=== PATIENT | male | born 1950 | race Caucasian/White ===

== ENCOUNTER 2017-05-06 11:12 | Observation (INO) ==
[2017-05-06 15:01] LABS: Basophils % 0.7 % (0.0-0.8); Eosinophils # 0.1 10*3/uL (0.0-0.87); Hematocrit 45.5 VOL% (42.0-52.0); Hemoglobin 14.9 GM/DL (14.0-18.0); Immature Granulocytes % 0.3 %; Immature Granulocytes Absolute 0.02 #; Lymphocytes # 1.6 10*3/uL (1.4-4.0); Lymphocytes % 27.6 % (21.2-54.2); Mean Corpuscular HGB Conc 32.7 GM/DL (32-36); Mean Corpuscular Hemoglobin 32 PG (27-34); Mean Corpuscular Volume 96.8 FL (87-102); Mean Platelet Volume 9.7 FL (9.6-12.0); Monocytes # 0.4 10*3/uL (0.11-0.8); Monocytes % 7.4 % (1.7-12.7); Neutrophils # 3.7 10*3/uL (1.4-7.4); Platelet Count 209 T/CUMM (130-400); Red Cell Distribution Width 12.2 % (9.3-17.3); White Blood Count 5.8 T/CUMM (4-12)
[2017-05-06 15:08] LABS: INR 1.1; PT Patient Result 11.5 SECS
[2017-05-06 15:48] LABS: Alanine Aminotransferase 36 U/L (16-61); Albumin 4.7 G/DL (3.4-5.0); Alkaline Phosphatase 59 U/L (45-117); Aspartate Amino Transferase 25 U/L (0-37); Blood Urea Nitrogen 11 MG/DL (7-18); Calcium 9.7 MG/DL (8.5-10.1); Glucose 129 MG/DL (74-106); Magnesium 2.3 MG/DL (1.8-2.4); Osmolality,Calculated 277.5 MOS/KG (273-304); Potassium 4.7 MMOL/L (3.5-5.1); Sodium 139 MMOL/L (136-145); Total Protein 7.8 G/DL (6.4-8.3); Troponin I Only < 0.015 NG/ML (0.00-0.045)
[2017-05-06] MEDS: ENOXAPARIN 100 MG/ML SYRINGE SUBCUT SCH (17:10)
[2017-05-06] MEDS: ASPIRIN 325 MG TABLET PO SCH (17:10)
[2017-05-06] MEDS ORDERED: ASPIRIN 325 MG TABLET ONE (17:12)
[2017-05-06] MEDS ORDERED: ENOXAPARIN 100 MG/ML SYRINGE SUBCUT ONE (17:12)
[2017-05-06] MEDS ORDERED: NITROGLYCERIN 2% OINT 1 INCH/GM PACK TOP ONE (17:12)
[2017-05-06] MEDS ORDERED: MAGNESIUM SULF RIDER 2 GM in PREMIX 1 EACH IV PRN (18:22)
[2017-05-06] MEDS ORDERED: ONDANSETRON 4 MG/2 ML VIAL IV PRN (18:22)
[2017-05-06] MEDS ORDERED: MAGNESIUM SULF RIDER 4 GM in PREMIX 1 EACH IV PRN (18:22)
[2017-05-06] MEDS ORDERED: NITROGLYCERIN 2% OINT 1 INCH/GM PACK TOP STA (18:22)
[2017-05-07 04:55] LABS: Basophils # 0.1 10*3/uL (0.0-0.2); Basophils % 0.9 % (0.0-0.8); Eosinophils # 0.1 10*3/uL (0.0-0.87); Eosinophils % 1.6 % (0.00-10.9); Hematocrit 40.1 VOL% (42.0-52.0); Hemoglobin 13.4 GM/DL (14.0-18.0); Immature Granulocytes % 0.5 %; Immature Granulocytes Absolute 0.03 #; Lymphocytes # 2.1 10*3/uL (1.4-4.0); Lymphocytes % 36.7 % (21.2-54.2); Mean Corpuscular HGB Conc 33.4 GM/DL (32-36); Mean Corpuscular Hemoglobin 32 PG (27-34); Mean Corpuscular Volume 95.5 FL (87-102); Mean Platelet Volume 10.3 FL (9.6-12.0); Monocytes # 0.6 10*3/uL (0.11-0.8); Monocytes % 9.8 % (1.7-12.7); Neutrophils # 2.8 10*3/uL (1.4-7.4); Neutrophils % 50.5 % (38.7-73.9); Platelet Count 201 T/CUMM (130-400); Red Cell Distribution Width 12.2 % (9.3-17.3); White Blood Count 5.6 T/CUMM (4-12)
[2017-05-07 05:08] LABS: PT Patient Result 10.7 SECS
[2017-05-07 05:25] LABS: Calcium 8.5 MG/DL (8.5-10.1); Osmolality,Calculated 281.4 MOS/KG (273-304); Potassium 4.4 MMOL/L (3.5-5.1)
[2017-05-07] MEDS ORDERED: POTASSIUM CHLORIDE RIDER 10 MEQ in PREMIX 1 EACH IV PRN (06:30)
[2017-05-07] MEDS ORDERED: diphenhydrAMINE CAP 25 MG CAPSULE PO ONE (06:30)
[2017-05-07] MEDS ORDERED: MAGNESIUM SULF RIDER 2 GM in PREMIX 1 EACH IV PRN (06:30)
[2017-05-07] MEDS: ASPIRIN 325 MG TABLET PO SCH ×2 (07:33→10:35)
[2017-05-07] MEDS: ENOXAPARIN 100 MG/ML SYRINGE SUBCUT SCH (07:34)
[2017-05-07] MEDS ORDERED: LIDOCAINE 1% 20 ML VIAL ONE (08:03)
[2017-05-07] MEDS ORDERED: VERAPAMIL 5 MG/2 ML VIAL ONE (08:06)
[2017-05-07] MEDS ORDERED: NITROGLYCERIN DRIP 50 MG/250 ML BOTTLE IV ONE (08:06)
[2017-05-07] MEDS ORDERED: POTASSIUM GLUCONATE 500 MG TABLET PO SCH (09:00)
[2017-05-07] MEDS ORDERED: MULTIVITAMIN (CENTRUM) TABLET PO SCH (09:00)
[2017-05-07] MEDS ORDERED: amLODIPine 10 MG TABLET PO SCH (09:00)
[2017-05-07] MEDS ORDERED: SERTRALINE 25 MG TABLET PO SCH (09:00)
[2017-05-07] MEDS ORDERED: PSYLLIUM POWDER 3.7 GM/PACK PO SCH (09:00)
[2017-05-07] MEDS ORDERED: CARVEDILOL 12.5 MG TABLET PO SCH (09:00)
[2017-05-07] MEDS ORDERED: PANTOPRAZOLE 40 MG TABLET PO SCH (09:00)
[2017-05-07] MEDS ORDERED: LACTOBACILLUS RHAMNOSUS GG CAPSULE PO SCH (09:00)
[2017-05-07] MEDS ORDERED: ISOSORBIDE MONONITRATE 30 MG TABLET PO SCH (09:00)
[2017-05-07] MEDS ORDERED: hydroCHLOROthiazide 12.5 MG CAPSULE PO SCH (09:00)
[2017-05-07] MEDS ORDERED: guaiFENesin/DM ER 600-30 MG TABLET PO PRN (11:34)
[2017-05-07] MEDS ORDERED: ACETAMINOPHEN 325 MG TABLET PO PRN (11:34)
[2017-05-07] MEDS ORDERED: ZALEPLON 5 MG CAPSULE PO PRN (11:34)
[2017-05-07 15:04] VITALS: BP 124/68
[2017-05-07] MEDS ORDERED: CLOPIDOGREL 75 MG TABLET PO SCH (21:00)
[2017-05-07] MEDS ORDERED: OMEGA 3 ACID ETHYL ESTERS 1 GM CAPSULE PO SCH (21:00)
[2017-05-08] MEDS ORDERED: ASPIRIN EC 81 MG TABLET PO SCH (09:00)
== END 2017-05-07 15:02 | disposition home or self-care (01) ==
LOC: N.ED 11:12 → N.EDINP 11:12 → N.TELES 19:01
PROVIDERS: ADMIT Internal Medicine Cardiovascular Disease; ATTEND Internal Medicine Cardiovascular Disease
PROC: CLCCHCL (ICD-10-PCS; 2017-05-07 09:15)

== ENCOUNTER 2020-02-11 01:10 | Observation (INO) ==
[2020-02-11] MEDS ORDERED: NITROGLYCERIN 2% OINT 1 INCH/GM PACK TOP STA (01:48)
[2020-02-11] MEDS ORDERED: ALUM/MAG/SIMETH/LIDO VISC 1:1 30 ML BOTTLE PO STA (01:48)
[2020-02-11] MEDS ORDERED: HYDROmorphone 2 MG/1 ML VIAL IV STA (01:48)
[2020-02-11] MEDS ORDERED: ONDANSETRON 4 MG/2 ML VIAL IV STA (01:48)
[2020-02-11] MEDS ORDERED: ASPIRIN 325 MG TABLET PO STA (01:48)
[2020-02-11 02:00] LABS: Basophils % 0.6 % (0.0-0.8); Eosinophils # 0.1 10*3/uL (0.0-0.87); Eosinophils % 1.4 % (0.00-10.9); Hematocrit 40.9 VOL% (42.0-52.0); Hemoglobin 14.3 GM/DL (14.0-18.0); Immature Granulocytes % 0.2 %; Immature Granulocytes Absolute 0.01 #; Lymphocytes # 1.9 10*3/uL (1.4-4.0); Lymphocytes % 36.4 % (21.2-54.2); Mean Corpuscular Volume 93.2 FL (87-102); Mean Platelet Volume 9.6 FL (9.6-12.0); Monocytes % 10.3 % (1.7-12.7); Neutrophils % 51.1 % (38.7-73.9); Platelet Count 160 T/CUMM (130-400); Red Blood Count 4.39 MC/CUMM (3.8-5.5); White Blood Count 5.1 T/CUMM (4-12)
[2020-02-11 02:07] LABS: PT Patient Result 10.7 SECS (9.8-11.9)
[2020-02-11 02:14] LABS: Albumin 3.8 G/DL (3.4-5.0); Bilirubin,Total 0.4 MG/DL (0.2-1.0); Calcium 8.5 MG/DL (8.5-10.1); Osmolality,Calculated 285.1 MOS/KG (273-304); Total Protein 6.9 G/DL (6.4-8.3)
[2020-02-11] MEDS ORDERED: ENOXAPARIN 100 MG/ML SYRINGE SUBCUT STA (03:24)
[2020-02-11] MEDS ORDERED: ENOXAPARIN 120 MG/0.8 ML SYRINGE SUBCUT ONE (04:05)
[2020-02-11] MEDS ORDERED: ONDANSETRON 4 MG/2 ML VIAL IV PRN (05:41)
[2020-02-11] MEDS ORDERED: DEXTROSE 50% 25 GM/50 ML VIAL IV PRN (05:41)
[2020-02-11] MEDS ORDERED: GLUCAGON 1 MG VIAL IM PRN (05:41)
[2020-02-11] MEDS ORDERED: carvediloL 12.5 MG TABLET PO SCH (08:00)
[2020-02-11] MEDS ORDERED: HYDROmorphone 2 MG/1 ML VIAL IV PRN (08:28)
[2020-02-11] MEDS ORDERED: SODIUM CHLORIDE 0.9% 1,000 ML IV SCH (08:30)
[2020-02-11 08:46] LABS: Risk Ratio 3.74; VLDL CHOLESTEROL 21.8 MG/DL
[2020-02-11] MEDS ORDERED: ATORVASTATIN 40 MG TABLET PO SCH (09:00)
[2020-02-11] MEDS ORDERED: POTASSIUM GLUCONATE 500 MG TABLET PO SCH (09:00)
[2020-02-11] MEDS ORDERED: LORATADINE 10 MG TABLET PO SCH (09:00)
[2020-02-11] MEDS ORDERED: ISOSORBIDE MONONITRATE 30 MG TABLET PO SCH (09:00)
[2020-02-11] MEDS ORDERED: MULTIVITAMIN (CENTRUM) TABLET PO SCH (09:00)
[2020-02-11] MEDS ORDERED: ASPIRIN EC 81 MG TABLET PO SCH (09:00)
[2020-02-11] MEDS ORDERED: LOSARTAN 50 MG TABLET PO SCH ×2 (09:00)
[2020-02-11] MEDS ORDERED: GABAPENTIN 100 MG CAPSULE PO SCH (15:37)
[2020-02-11] MEDS ORDERED: IBUPROFEN 600 MG TABLET PO ONE (15:38)
[2020-02-11] MEDS ORDERED: IBUPROFEN 600 MG TABLET PO PRN (15:38)
[2020-02-11 18:17] VITALS: BP 132/76
[2020-02-11] MEDS ORDERED: OMEGA 3 ACID ETHYL ESTERS 1 GM CAPSULE PO SCH (21:00)
[2020-02-11] MEDS ORDERED: CLOPIDOGREL 75 MG TABLET PO SCH (21:00)
[2020-02-12] MEDS ORDERED: glyBURIDE 2.5 MG TABLET PO SCH (09:00)
[2020-02-12] MEDS ORDERED: ATORVASTATIN 80 MG TABLET PO SCH (09:00)
== END 2020-02-11 18:08 | disposition home health service (06) ==
LOC: N.EDINP 01:10 → N.ED 01:10 → N.TELEN 06:09
PROVIDERS: ADMIT Internal Medicine; ATTEND Internal Medicine

== ENCOUNTER 2021-09-07 06:01 | Inpatient (IN) ==
[~2021-09-07 06:01] MED LIST: ASPIRIN 325 MG TABLET PO ONE; DIAZEPAM 5 MG TABLET PO ONE; MAGNESIUM SULF RIDER 2 GM/50 ML PREMIX IV PRN; POTASSIUM CHLORIDE RIDER 10 MEQ/100 ML PREMIX IV PRN; diphenhydrAMINE CAP 50 MG CAPSULE PO ONE
[2021-09-07] MEDS ORDERED: HEPARIN/NACL 0.9% 2 UNITS/ML 2,000 UNIT/1,000 ML BAG IV ONE (06:49)
[2021-09-07] MEDS ORDERED: DIAZEPAM 5 MG TABLET ONE (06:54)
[2021-09-07] MEDS ORDERED: ASPIRIN 325 MG TABLET ONE (06:54)
[2021-09-07] MEDS ORDERED: diphenhydrAMINE CAP 50 MG CAPSULE ONE (06:54)
[2021-09-07] MEDS: SODIUM CHLORIDE 0.9% 1,000 ML IV SCH ×2 (07:14→17:22)
[2021-09-07] MEDS ORDERED: HYDROmorphone 1 MG/1 ML SYRINGE ONE (07:19)
[2021-09-07] MEDS ORDERED: MIDAZOLAM 2 MG/2 ML VIAL ONE (07:19)
[2021-09-07] MEDS ORDERED: diphenhydrAMINE 50 MG/1 ML VIAL ONE (07:29)
[2021-09-07] MEDS ORDERED: NITROGLYCERIN SL 0.4 MG TABLET SL PRN (08:00)
[2021-09-07] MEDS ORDERED: ONDANSETRON 4 MG/2 ML VIAL IV PRN (08:00)
[2021-09-07] MEDS ORDERED: GLUCAGON 1 MG VIAL IM PRN (08:54)
[2021-09-07] MEDS ORDERED: DEXTROSE 10% 250 ML BAG IV PRN (08:54)
[2021-09-07] MEDS: LOSARTAN 50 MG TABLET PO SCH ×2 (10:44→21:31)
[2021-09-07] MEDS: DOXAZOSIN 1 MG TABLET PO SCH ×2 (10:44→21:31)
[2021-09-07] MEDS: ZINC GLUCONATE 50 MG TABLET PO SCH (10:44)
[2021-09-07] MEDS: carvediloL 25 MG TABLET PO SCH ×2 (10:44→21:31)
[2021-09-07] MEDS: glyBURIDE 5 MG TABLET PO SCH (10:44)
[2021-09-07] MEDS: ATORVASTATIN 40 MG TABLET PO SCH (10:45)
[2021-09-07] MEDS: LORATADINE 10 MG TABLET PO SCH (10:45)
[2021-09-07] MEDS: ASPIRIN EC 81 MG TABLET PO SCH (10:45)
[2021-09-07] MEDS: HEPARIN DRIP 25,000 UNITS/500 ML PREMIX IV SCH (10:46)
[2021-09-07] MEDS: INSULIN REGULAR 100 UNIT/ML SUBCUT SCH ×3 (13:17→20:46)
[2021-09-07] MEDS ORDERED: BIOTIN 10000 MCG PO SCH (21:00)
[2021-09-07] MEDS ORDERED: [UNRECOGNIZED DRUG - REMARK] PO SCH (21:00)
[2021-09-07] MEDS ORDERED: GINKGO BILOBA LEAF EXTRACT 120 MG PO SCH (21:00)
[2021-09-08] MEDS: SODIUM CHLORIDE 0.9% 1,000 ML IV SCH ×4 (02:53→23:14)
[2021-09-08 04:41] LABS: Arterial Base Excess iSTAT 0 MMOL/L (-2.5-2.5); Arterial Bicarbonate iSTAT 24.2 MMOL/L (20-26); Arterial O2 Saturation iSTAT 99 % (95-100); Arterial PCO2 iSTAT 38 MM HG (35-48); Arterial PO2 iSTAT 122 MM HG (80-95); Arterial Total CO2 iSTAT 25 MMO/L (23-27); Arterial pH iSTAT 7.412 (7.35-7.45)
[2021-09-08 05:14] LABS: Basophils % 0.4 % (0.0-0.8); Eosinophils # 0.1 10*3/uL (0.0-0.87); Eosinophils % 1.1 % (0.00-10.9); Hematocrit 38.5 VOL% (42.0-52.0); Hemoglobin 12.8 GM/DL (14.0-18.0); Immature Granulocytes % 0.4 %; Immature Granulocytes Absolute 0.02 #; Lymphocytes # 1.7 10*3/uL (1.4-4.0); Lymphocytes % 36.4 % (21.2-54.2); Mean Corpuscular HGB Conc 33.2 GM/DL (32-36); Mean Corpuscular Volume 96.5 FL (87-102); Mean Platelet Volume 10.1 FL (9.6-12.0); Monocytes # 0.4 10*3/uL (0.11-0.8); Monocytes % 8.3 % (1.7-12.7); Neutrophils % 53.4 % (38.7-73.9); Platelet Count 150 T/CUMM (130-400); Red Blood Count 3.99 MC/CUMM (3.8-5.5); Red Cell Distribution Width 12.5 % (9.3-17.3); White Blood Count 4.6 T/CUMM (4-12)
[2021-09-08 05:34] LABS: Albumin 3.2 G/DL (3.4-5.0); Bilirubin,Direct 0.11 MG/DL (0.0-0.20); Bilirubin,Indirect 0.4 MG/DL (0.0-1.0); Bilirubin,Total 0.5 MG/DL (0.20-1.00); Osmolality,Calculated 282.3 MOS/KG (273-304); Potassium 3.9 MMOL/L (3.5-5.1); Total Protein 5.7 G/DL (6.4-8.2)
[2021-09-08] MEDS: HEPARIN DRIP 25,000 UNITS/500 ML PREMIX IV SCH ×2 (05:34→10:02)
[2021-09-08 05:38] LABS: Albumin 3.3 G/DL (3.4-5.0); Bilirubin,Total 0.5 MG/DL (0.20-1.00); Calcium 8.1 MG/DL (8.5-10.1); Osmolality,Calculated 284.1 MOS/KG (273-304); Potassium 3.9 MMOL/L (3.5-5.1); Total Protein 5.9 G/DL (6.4-8.2)
[2021-09-08] MEDS: INSULIN REGULAR 100 UNIT/ML SUBCUT SCH ×4 (07:45→22:07)
[2021-09-08] MEDS: LORATADINE 10 MG TABLET PO SCH (09:29)
[2021-09-08] MEDS: DOXAZOSIN 1 MG TABLET PO SCH ×2 (09:29→20:44)
[2021-09-08] MEDS: ASPIRIN EC 81 MG TABLET PO SCH (09:29)
[2021-09-08] MEDS: carvediloL 25 MG TABLET PO SCH ×2 (09:29→20:44)
[2021-09-08] MEDS: ZINC GLUCONATE 50 MG TABLET PO SCH (09:29)
[2021-09-08] MEDS: glyBURIDE 5 MG TABLET PO SCH (09:29)
[2021-09-08] MEDS: CHLORHEXIDINE 0.12% ORAL RINSE 60 ML BOTTLE SWISH/SPIT SCH ×2 (09:29→20:43)
[2021-09-08] MEDS ORDERED: LACTATED RINGERS 1,000 ML IV SCH (09:30)
[2021-09-08] MEDS: ATORVASTATIN 40 MG TABLET PO SCH (09:30)
[2021-09-08] MEDS: LOSARTAN 50 MG TABLET PO SCH ×2 (09:30→20:44)
[2021-09-09 05:18] LABS: Basophils % 0.2 % (0.0-0.8); Eosinophils % 0.7 % (0.00-10.9); Hematocrit 36.3 VOL% (42.0-52.0); Hemoglobin 12.2 GM/DL (14.0-18.0); Immature Granulocytes % 0.5 %; Immature Granulocytes Absolute 0.02 #; Lymphocytes # 1.5 10*3/uL (1.4-4.0); Lymphocytes % 34.5 % (21.2-54.2); Mean Corpuscular HGB Conc 33.6 GM/DL (32-36); Mean Corpuscular Volume 96.5 FL (87-102); Mean Platelet Volume 10.1 FL (9.6-12.0); Monocytes # 0.5 10*3/uL (0.11-0.8); Monocytes % 11.6 % (1.7-12.7); Neutrophils % 52.5 % (38.7-73.9); Platelet Count 155 T/CUMM (130-400); Red Blood Count 3.76 MC/CUMM (3.8-5.5); Red Cell Distribution Width 12.4 % (9.3-17.3); White Blood Count 4.3 T/CUMM (4-12)
[2021-09-09 05:34] LABS: Calcium 8.2 MG/DL (8.5-10.1); Osmolality,Calculated 282.1 MOS/KG (273-304); Potassium 4.1 MMOL/L (3.5-5.1)
[2021-09-09] MEDS: INSULIN REGULAR 100 UNIT/ML SUBCUT SCH ×4 (07:19→21:23)
[2021-09-09] MEDS: SODIUM CHLORIDE 0.9% 1,000 ML IV SCH (09:04)
[2021-09-09] MEDS: glyBURIDE 5 MG TABLET PO SCH (09:04)
[2021-09-09] MEDS: ZINC GLUCONATE 50 MG TABLET PO SCH (09:04)
[2021-09-09] MEDS: DOXAZOSIN 1 MG TABLET PO SCH ×2 (09:04→21:24)
[2021-09-09] MEDS: ATORVASTATIN 40 MG TABLET PO SCH (09:05)
[2021-09-09] MEDS: LORATADINE 10 MG TABLET PO SCH (09:05)
[2021-09-09] MEDS: carvediloL 25 MG TABLET PO SCH ×2 (09:05→21:23)
[2021-09-09] MEDS: LOSARTAN 50 MG TABLET PO SCH ×2 (09:05→21:24)
[2021-09-09] MEDS: CHLORHEXIDINE 0.12% ORAL RINSE 60 ML BOTTLE SWISH/SPIT SCH ×2 (09:05→21:25)
[2021-09-09] MEDS: ASPIRIN EC 81 MG TABLET PO SCH (09:05)
[2021-09-09] MEDS ORDERED: CLORAZEPATE 3.75 MG TABLET PO PRN (09:21)
[2021-09-09] MEDS: HEPARIN DRIP 25,000 UNITS/500 ML PREMIX IV SCH (18:45)
[2021-09-10 05:37] LABS: Basophils % 0.5 % (0.0-0.8); Hematocrit 38.4 VOL% (42.0-52.0); Hemoglobin 12.7 GM/DL (14.0-18.0); Immature Granulocytes % 0.5 %; Immature Granulocytes Absolute 0.02 #; Lymphocytes # 1.4 10*3/uL (1.4-4.0); Lymphocytes % 33.7 % (21.2-54.2); Mean Corpuscular HGB Conc 33.1 GM/DL (32-36); Mean Corpuscular Volume 97.2 FL (87-102); Monocytes # 0.5 10*3/uL (0.11-0.8); Monocytes % 11.7 % (1.7-12.7); Neutrophils % 52.6 % (38.7-73.9); Platelet Count 154 T/CUMM (130-400); Red Blood Count 3.95 MC/CUMM (3.8-5.5); Red Cell Distribution Width 12.5 % (9.3-17.3); White Blood Count 4.1 T/CUMM (4-12)
[2021-09-10 05:59] LABS: Calcium 8.4 MG/DL (8.5-10.1); Osmolality,Calculated 281.3 MOS/KG (273-304); Potassium 4.4 MMOL/L (3.5-5.1)
[2021-09-10] MEDS: INSULIN REGULAR 100 UNIT/ML SUBCUT SCH ×4 (07:51→21:34)
[2021-09-10] MEDS: CHLORHEXIDINE 4% SOLN 118 ML BOTTLE TOP SCH ×3 (09:10→21:34)
[2021-09-10] MEDS: LOSARTAN 50 MG TABLET PO SCH ×2 (10:12→21:32)
[2021-09-10] MEDS: ZINC GLUCONATE 50 MG TABLET PO SCH (10:12)
[2021-09-10] MEDS: carvediloL 25 MG TABLET PO SCH ×2 (10:12→21:32)
[2021-09-10] MEDS: LORATADINE 10 MG TABLET PO SCH (10:12)
[2021-09-10] MEDS: ATORVASTATIN 40 MG TABLET PO SCH (10:13)
[2021-09-10] MEDS: ASPIRIN EC 81 MG TABLET PO SCH (10:13)
[2021-09-10] MEDS: glyBURIDE 5 MG TABLET PO SCH (10:13)
[2021-09-10] MEDS: SODIUM CHLORIDE 0.9% 1,000 ML IV SCH (10:14)
[2021-09-10] MEDS: CHLORHEXIDINE 0.12% ORAL RINSE 60 ML BOTTLE SWISH/SPIT SCH ×2 (10:14→21:34)
[2021-09-10] MEDS: DOXAZOSIN 1 MG TABLET PO SCH ×2 (10:16→21:32)
[2021-09-10] MEDS: HEPARIN DRIP 25,000 UNITS/500 ML PREMIX IV SCH (12:59)
[2021-09-11 04:47] LABS: Basophils % 0.3 % (0.0-0.8); Eosinophils % 0.8 % (0.00-10.9); Hematocrit 38.5 VOL% (42.0-52.0); Hemoglobin 12.9 GM/DL (14.0-18.0); Immature Granulocytes % 0.3 %; Immature Granulocytes Absolute 0.01 #; Lymphocytes # 1.2 10*3/uL (1.4-4.0); Lymphocytes % 32.3 % (21.2-54.2); Mean Corpuscular HGB Conc 33.5 GM/DL (32-36); Mean Corpuscular Volume 97.2 FL (87-102); Mean Platelet Volume 10.4 FL (9.6-12.0); Monocytes # 0.4 10*3/uL (0.11-0.8); Monocytes % 10.8 % (1.7-12.7); Neutrophils % 55.5 % (38.7-73.9); Platelet Count 164 T/CUMM (130-400); Red Blood Count 3.96 MC/CUMM (3.8-5.5); Red Cell Distribution Width 12.5 % (9.3-17.3); White Blood Count 3.7 T/CUMM (4-12)
[2021-09-11 04:56] LABS: PT Patient Result 11.5 SECS (10.5-12.0); Partial Thromboplastin Time 27.6 SECS (23.7-32.9)
[2021-09-11] MEDS ORDERED: FAMOTIDINE 20 MG TABLET PO ONE (05:00)
[2021-09-11] MEDS ORDERED: VANCOMYCIN INJ 1,000 MG in SODIUM CHLORIDE 0.9% 250 ML IV ONE (05:00)
[2021-09-11] MEDS: CHLORHEXIDINE 4% SOLN 118 ML BOTTLE TOP SCH (05:15)
[2021-09-11 05:17] LABS: Calcium 8.9 MG/DL (8.5-10.1); Osmolality,Calculated 281.3 MOS/KG (273-304); Potassium 4.2 MMOL/L (3.5-5.1)
[2021-09-11] MEDS ORDERED: PAPAVERINE 60 MG/2 ML VIAL ONE (05:53)
[2021-09-11] MEDS ORDERED: VANCOMYCIN 1,000 MG VIAL ONE (05:53)
[2021-09-11] MEDS ORDERED: VANCOMYCIN 500 MG VIAL ONE (05:53)
[2021-09-11] MEDS ORDERED: MIDAZOLAM 10 MG/2 ML VIAL ONE ×3 (06:13→08:25)
[2021-09-11] MEDS ORDERED: SUFentanil 250 MCG/5 ML AMP ONE ×3 (06:13→06:14)
[2021-09-11] MEDS ORDERED: LIDOCAINE 2% 5 ML VIAL ONE ×3 (06:14→10:40)
[2021-09-11] MEDS ORDERED: ETOMIDATE 40 MG/20 ML VIAL IV ONE (06:14)
[2021-09-11] MEDS ORDERED: VECURONIUM 10 MG VIAL IV ONE ×3 (06:14→08:41)
[2021-09-11] MEDS ORDERED: AMINOCAPROIC ACID 5,000 MG/20 ML VIAL ONE ×4 (06:19→06:25)
[2021-09-11] MEDS ORDERED: NITROGLYCERIN DRIP 50 MG/250 ML BOTTLE IV ONE (06:26)
[2021-09-11] MEDS ORDERED: PHENYLEPHRINE DRIP 20 MG/250 ML PREMIX IV ONE (06:26)
[2021-09-11] MEDS ORDERED: NITROGLYCERIN DRIP 0 MG/0 ML BOTTLE IV ONE (06:26)
[2021-09-11] MEDS ORDERED: LORazepam 1 MG TABLET PO ONE (06:38)
[2021-09-11] MEDS ORDERED: SODIUM BICARBONATE 50 MEQ/50 ML VIAL IV ONE ×2 (06:54→10:36)
[2021-09-11] MEDS ORDERED: CALCIUM CHLORIDE 1,000 MG/10 ML SYRINGE IV ONE (06:55)
[2021-09-11] MEDS ORDERED: PHENYLEPHRINE DRIP 40 MG/250 ML PREMIX IV ONE (06:55)
[2021-09-11] MEDS ORDERED: POTASSIUM CHLORIDE RIDER 20 MEQ/100 ML PREMIX IV ONE (06:55)
[2021-09-11] MEDS ORDERED: NITROPRUSSIDE 50 MG/2 ML VIAL ONE (06:55)
[2021-09-11 07:40] LABS: ABG Base Excess 1.3 MMOL/L (-2.5-2.5); ABG HCO3 25.6 MMOL/L (20-26); ABG Oxygen Saturation 99.4 % (95-100); ABG PCO2 46.3 MM HG (35-48); ABG PH 7.374 (7.35-7.45); ABG TCO2 23.9 MMOL/L (23-27); Glucose Heart Surgery 135 MG/DL (74-106); Hematocrit Heart Surgery 38.3 PERCENT (42-52); Hemoglobin Heart Surgery 12.4 G/DL (14.0-18.0); Ionized Calcium Arterial 1.15 MMOL/L (1.21-1.46); PCO2 Patient Temp Arterial 46.3 MMHG; PH Patient Temp Arterial 7.374; Patient Temperature 37 CELCIUS; Potassium Heart/CVR 4.5 MMOL/L (3.5-5.1); Sodium Heart/CVR 139 MMOL/L (135-145)
[2021-09-11 07:44] LABS: Bilirubin,Urine Negative (Negative); Blood, Urine Negative (Negative); Glucose,Urine (UA) Negative (Negative); Hyaline Casts,Urine 1 /LPF (0-3); Ketones,Urine Negative (Negative); Mucus,Urine Many /LPF (Occasional); Nitrite,Urine Negative (Negative); Protein,Urine Negative (Negative); RBC,Urine 1 /HPF (0-4); Urine Appearance Clear (Clear); Urine Color Yellow (Yellow)
[2021-09-11] MEDS ORDERED: AMIODARONE 150 MG/3 ML VIAL ONE (08:54)
[2021-09-11] MEDS ORDERED: LACTATED RINGERS 1,000 ML IV ONE (08:58)
[2021-09-11] MEDS ORDERED: CALCIUM CHLORIDE 1,000 MG/10 ML VIAL IV ONE (08:59)
[2021-09-11] MEDS ORDERED: HEPARIN/NACL 0.9% 2 UNITS/ML 1,000 UNIT/500 ML BAG IV ONE (08:59)
[2021-09-11] MEDS ORDERED: SODIUM CHLORIDE 0.9% 500 ML IV ONE (08:59)
[2021-09-11] MEDS ORDERED: SODIUM CHLORIDE 0.9% 1,000 ML IV ONE (08:59)
[2021-09-11 09:11] LABS: Hematocrit Heart Surgery 26.1 PERCENT (42-52); Hemoglobin Heart Surgery 8.4 G/DL (14.0-18.0); PCO2 Patient Temp Venous 45.5 MM HG; PH Patient Temp Venous 7.384; PO2 Patient Temp Venous 52.3 MM HG; Potassium Heart/CVR 4.6 MMOL/L (3.5-5.1); VBG Base Excess 1.8 MEQ/L (0-4); VBG HCO3 25.9 MEQ/L (24-28); VBG Oxygen Saturation 84.6 %; VBG PCO2 45.5 MMHG (41-51); VBG PH 7.384; VBG PO2 52.3 MMHG (17-40); VBG Total CO2 25.4 MMOL/L
[2021-09-11 09:42] LABS: Hematocrit Heart Surgery 30.3 PERCENT (42-52); Hemoglobin Heart Surgery 9.8 G/DL (14.0-18.0); PCO2 Patient Temp Venous 39.1 MM HG; PH Patient Temp Venous 7.437; PO2 Patient Temp Venous 42.2 MM HG; Potassium Heart/CVR 4.6 MMOL/L (3.5-5.1); VBG Base Excess 2.3 MEQ/L (0-4); VBG HCO3 26.2 MEQ/L (24-28); VBG PCO2 45.2 MMHG (41-51); VBG PH 7.393; VBG PO2 51.8 MMHG (17-40); VBG Total CO2 25.2 MMOL/L
[2021-09-11 10:24] LABS: ABG Base Excess 1.9 MMOL/L (-2.5-2.5); ABG HCO3 26.1 MMOL/L (20-26); ABG Oxygen Saturation 98.7 % (95-100); ABG PCO2 40.7 MM HG (35-48); ABG TCO2 23.9 MMOL/L (23-27); Glucose Heart Surgery 230 MG/DL (74-106); Hematocrit Heart Surgery 31.9 PERCENT (42-52); Hemoglobin Heart Surgery 10.3 G/DL (14.0-18.0); Ionized Calcium Arterial 1.16 MMOL/L (1.21-1.46); PCO2 Patient Temp Arterial 40.7 MMHG; Patient Temperature 37 CELCIUS; Potassium Heart/CVR 4.4 MMOL/L (3.5-5.1); Sodium Heart/CVR 138 MMOL/L (135-145)
[2021-09-11] MEDS ORDERED: ONDANSETRON 4 MG/2 ML VIAL IV PRN (10:31)
[2021-09-11] MEDS ORDERED: MAGNESIUM SULF RIDER 4 GM/100 ML PREMIX IV PRN (10:31)
[2021-09-11] MEDS ORDERED: MIDAZOLAM 2 MG/2 ML VIAL IV PRN (10:31)
[2021-09-11] MEDS ORDERED: MORPHINE 2 MG/1 ML SYRINGE IV PRN (10:31)
[2021-09-11] MEDS ORDERED: NITROPRUSSIDE 100 MG in DEXTROSE 5% 250 ML IV PRN (10:31)
[2021-09-11] MEDS ORDERED: MORPHINE 10 MG/1 ML VIAL IV PRN (10:31)
[2021-09-11] MEDS ORDERED: ACETAMINOPHEN 650 MG SUPP RECTAL PRN (10:31)
[2021-09-11] MEDS ORDERED: INSULIN REGULAR 100 UNIT/ML IV PRN (10:31)
[2021-09-11] MEDS ORDERED: MAGNESIUM SULF RIDER 2 GM/50 ML PREMIX IV PRN (10:31)
[2021-09-11] MEDS ORDERED: LACTATED RINGERS 250 ML IV PRN (10:31)
[2021-09-11] MEDS ORDERED: INSULIN REGULAR 100 UNIT/ML IV ONE (10:31)
[2021-09-11] MEDS ORDERED: VECURONIUM 10 MG VIAL IV PRN ×2 (10:31)
[2021-09-11] MEDS ORDERED: CALCIUM CHLORIDE 1,000 MG/10 ML SYRINGE IV PRN (10:31)
[2021-09-11] MEDS ORDERED: SODIUM CHLORIDE 0.45% 1,000 ML IV SCH ×2 (10:31)
[2021-09-11] MEDS ORDERED: DEXTROSE 10% 250 ML BAG IV PRN ×2 (10:31)
[2021-09-11] MEDS ORDERED: CHLORHEXIDINE 4% SOLN 118 ML BOTTLE TOP PRN (10:31)
[2021-09-11] MEDS ORDERED: PHENYLEPHRINE DRIP 40 MG/250 ML PREMIX IV PRN (10:31)
[2021-09-11] MEDS ORDERED: MAGNESIUM SULFATE 5 GM/10 ML VIAL IV ONE (10:34)
[2021-09-11] MEDS ORDERED: ALBUMIN 25% 25 GM/100 ML VIAL IV ONE (10:34)
[2021-09-11] MEDS: INSULIN REGULAR 100 UNIT/ML SUBCUT SCH (10:34)
[2021-09-11] MEDS ORDERED: MANNITOL 12.5 GM/50 ML VIAL IV ONE (10:35)
[2021-09-11] MEDS: carvediloL 25 MG TABLET PO SCH (10:35)
[2021-09-11] MEDS ORDERED: HEPARIN 10,000 UNIT/10 ML VIAL ONE (10:35)
[2021-09-11] MEDS ORDERED: methylPREDNISolone SOD SUC 1,000 MG/8 ML VIAL ONE (10:35)
[2021-09-11] MEDS ORDERED: DEXTROSE 5% KCL 20 MEQ 20 MEQ/1,000 ML BAG IV ONE (10:35)
[2021-09-11] MEDS: DOXAZOSIN 1 MG TABLET PO SCH (10:35)
[2021-09-11] MEDS: LORATADINE 10 MG TABLET PO SCH (10:35)
[2021-09-11] MEDS ORDERED: PROTAMINE SULFATE 250 MG/25 ML VIAL IV ONE (10:35)
[2021-09-11] MEDS: glyBURIDE 5 MG TABLET PO SCH (10:35)
[2021-09-11] MEDS: LOSARTAN 50 MG TABLET PO SCH (10:35)
[2021-09-11] MEDS: ASPIRIN EC 81 MG TABLET PO SCH (10:35)
[2021-09-11] MEDS: CHLORHEXIDINE 0.12% ORAL RINSE 60 ML BOTTLE SWISH/SPIT SCH ×2 (10:36→20:14)
[2021-09-11] MEDS: HEPARIN DRIP 25,000 UNITS/500 ML PREMIX IV SCH (10:36)
[2021-09-11] MEDS: ZINC GLUCONATE 50 MG TABLET PO SCH (10:36)
[2021-09-11] MEDS: ATORVASTATIN 40 MG TABLET PO SCH (10:36)
[2021-09-11] MEDS: SODIUM CHLORIDE 0.9% 1,000 ML IV SCH (10:36)
[2021-09-11] MEDS ORDERED: FUROSEMIDE 20 MG/2 ML VIAL ONE (10:36)
[2021-09-11] MEDS ORDERED: PROTAMINE SULFATE 50 MG/5 ML VIAL IV ONE ×2 (10:36→12:19)
[2021-09-11 11:39] LABS: ABG Base Excess 2.4 MMOL/L (-2.5-2.5); ABG HCO3 26.5 MMOL/L (20-26); ABG PCO2 42.7 MM HG (35-48); ABG PH 7.413 (7.35-7.45); ABG TCO2 24.4 MMOL/L (23-27); Glucose Heart Surgery 211 MG/DL (74-106); Hematocrit Heart Surgery 34.6 PERCENT (42-52); Hemoglobin Heart Surgery 11.2 G/DL (14.0-18.0); Potassium Heart/CVR 3.9 MMOL/L (3.5-5.1)
[2021-09-11 11:41] LABS: Basophils % 0.2 % (0.0-0.8); Eosinophils % 0.4 % (0.00-10.9); Hematocrit 32.2 VOL% (42.0-52.0); Hemoglobin 11.1 GM/DL (14.0-18.0); Immature Granulocytes % 0.8 %; Immature Granulocytes Absolute 0.04 #; Lymphocytes # 0.8 10*3/uL (1.4-4.0); Lymphocytes % 14.6 % (21.2-54.2); Mean Corpuscular HGB Conc 34.5 GM/DL (32-36); Mean Corpuscular Volume 95.5 FL (87-102); Mean Platelet Volume 10.2 FL (9.6-12.0); Monocytes # 0.3 10*3/uL (0.11-0.8); Monocytes % 5.7 % (1.7-12.7); Neutrophils % 78.3 % (38.7-73.9); Platelet Count 166 T/CUMM (130-400); Red Blood Count 3.37 MC/CUMM (3.8-5.5); Red Cell Distribution Width 12.7 % (9.3-17.3); White Blood Count 5.3 T/CUMM (4-12)
[2021-09-11] MEDS: POTASSIUM CHLORIDE RIDER 20 MEQ/100 ML PREMIX IV PRN ×4 (11:45→20:44)
[2021-09-11 11:56] LABS: INR 1.1; PT Patient Result 11.9 SECS (10.5-12.0); Partial Thromboplastin Time 27.9 SECS (23.7-32.9)
[2021-09-11 11:59] LABS: CKMB % 4.89 %
[2021-09-11] MEDS: INSULIN REGULAR DRIP 100 ML IV SCH (12:00)
[2021-09-11 12:02] LABS: High Sensitive Troponin I* 1136.1 ng/L (0-78)
[2021-09-11 12:05] LABS: Albumin 3.8 G/DL (3.4-5.0); Calcium 8.6 MG/DL (8.5-10.1); Total Protein 6.3 G/DL (6.4-8.2)
[2021-09-11] MEDS: POTASSIUM CHLORIDE RIDER 10 MEQ/100 ML PREMIX IV PRN ×2 (12:16→13:52)
[2021-09-11] MEDS: LACTATED RINGERS 1,000 ML IV PRN ×3 (12:27→15:28)
[2021-09-11 13:17] LABS: ABG Base Excess 2.2 MMOL/L (-2.5-2.5); ABG HCO3 26.4 MMOL/L (20-26); ABG Oxygen Saturation 99.1 % (95-100); ABG PH 7.408 (7.35-7.45); ABG TCO2 24.3 MMOL/L (23-27); Glucose Heart Surgery 194 MG/DL (74-106); Hematocrit Heart Surgery 33.8 PERCENT (42-52); Hemoglobin Heart Surgery 10.9 G/DL (14.0-18.0); Potassium Heart/CVR 3.9 MMOL/L (3.5-5.1)
[2021-09-11] MEDS: ALBUMIN 5% 12.5 GM/250 ML VIAL IV PRN ×3 (13:21→15:13)
[2021-09-11 16:20] LABS: ABG HCO3 25.3 MMOL/L (20-26); ABG Oxygen Saturation 99.4 % (95-100); ABG PCO2 45.2 MM HG (35-48); ABG PH 7.375 (7.35-7.45); ABG TCO2 24.3 MMOL/L (23-27); Glucose Heart Surgery 163 MG/DL (74-106); Hematocrit Heart Surgery 28.9 PERCENT (42-52); Hemoglobin Heart Surgery 9.3 G/DL (14.0-18.0)
[2021-09-11 18:04] LABS: ABG Base Excess 0.4 MMOL/L (-2.5-2.5); ABG HCO3 24.8 MMOL/L (20-26); ABG Oxygen Saturation 96.1 % (95-100); ABG PCO2 45.1 MM HG (35-48); ABG PH 7.369 (7.35-7.45); ABG PO2 88.1 MM HG (80-95); ABG TCO2 23.3 MMOL/L (23-27); Glucose Heart Surgery 184 MG/DL (74-106); Hematocrit Heart Surgery 35.1 PERCENT (42-52); Hemoglobin Heart Surgery 11.4 G/DL (14.0-18.0); Potassium Heart/CVR 4.4 MMOL/L (3.5-5.1)
[2021-09-11 19:26] LABS: CKMB % 3.12 %
[2021-09-11 19:48] LABS: ABG Base Excess 0.8 MMOL/L (-2.5-2.5); ABG Oxygen Saturation 92.4 % (95-100); ABG PCO2 43.4 MM HG (35-48); ABG PH 7.386 (7.35-7.45); ABG PO2 68.5 MM HG (80-95); ABG TCO2 23.4 MMOL/L (23-27); Glucose Heart Surgery 193 MG/DL (74-106); Hematocrit Heart Surgery 33.7 PERCENT (42-52); Hemoglobin Heart Surgery 10.9 G/DL (14.0-18.0)
[2021-09-11] MEDS ORDERED: FUROSEMIDE 40 MG/4 ML VIAL IV ONE (21:00)
[2021-09-11 21:26] LABS: ABG Base Excess 2.1 MMOL/L (-2.5-2.5); ABG HCO3 26.2 MMOL/L (20-26); ABG Oxygen Saturation 93.5 % (95-100); ABG PCO2 37.2 MM HG (35-48); ABG PH 7.451 (7.35-7.45); ABG PO2 67.8 MM HG (80-95); ABG TCO2 23.1 MMOL/L (23-27); Glucose Heart Surgery 212 MG/DL (74-106); Hematocrit Heart Surgery 35.2 PERCENT (42-52); Hemoglobin Heart Surgery 11.4 G/DL (14.0-18.0); Potassium Heart/CVR 3.9 MMOL/L (3.5-5.1)
[2021-09-11] MEDS: MIDAZOLAM 10 MG/2 ML VIAL IV PRN (21:28)
[2021-09-11] MEDS: VANCOMYCIN INJ 1,000 MG in SODIUM CHLORIDE 0.9% 250 ML IV SCH (22:13)
[2021-09-11 22:34] LABS: ABG Base Excess 2.2 MMOL/L (-2.5-2.5); ABG HCO3 26.3 MMOL/L (20-26); ABG Oxygen Saturation 94.7 % (95-100); ABG PCO2 38.7 MM HG (35-48); ABG TCO2 23.6 MMOL/L (23-27); Glucose Heart Surgery 202 MG/DL (74-106); Hematocrit Heart Surgery 33.9 PERCENT (42-52); Potassium Heart/CVR 3.7 MMOL/L (3.5-5.1)
[2021-09-12 00:28] LABS: ABG HCO3 26.1 MMOL/L (20-26); ABG Oxygen Saturation 93.8 % (95-100); ABG PCO2 40.4 MM HG (35-48); ABG PH 7.424 (7.35-7.45); ABG TCO2 23.9 MMOL/L (23-27); Glucose Heart Surgery 181 MG/DL (74-106); Hematocrit Heart Surgery 32.2 PERCENT (42-52); Hemoglobin Heart Surgery 10.4 G/DL (14.0-18.0); Potassium Heart/CVR 3.5 MMOL/L (3.5-5.1)
[2021-09-12] MEDS ORDERED: methylPREDNISolone SOD SUC 125 MG/2 ML VIAL IV ONE (00:33)
[2021-09-12] MEDS: POTASSIUM CHLORIDE RIDER 20 MEQ/100 ML PREMIX IV PRN ×4 (00:50→06:44)
[2021-09-12 02:04] LABS: ABG Base Excess 1.8 MMOL/L (-2.5-2.5); ABG Oxygen Saturation 97.9 % (95-100); ABG PCO2 41.5 MM HG (35-48); ABG PH 7.413 (7.35-7.45); Glucose Heart Surgery 150 MG/DL (74-106); Hematocrit Heart Surgery 31.6 PERCENT (42-52); Hemoglobin Heart Surgery 10.2 G/DL (14.0-18.0); Potassium Heart/CVR 4.2 MMOL/L (3.5-5.1)
[2021-09-12] MEDS ORDERED: PANTOPRAZOLE 40 MG VIAL IV ONE (02:14)
[2021-09-12] MEDS: MIDAZOLAM 10 MG/2 ML VIAL IV PRN (02:24)
[2021-09-12 04:19] LABS: ABG Base Excess 1.1 MMOL/L (-2.5-2.5); ABG HCO3 25.4 MMOL/L (20-26); ABG Oxygen Saturation 95.9 % (95-100); ABG PCO2 40.3 MM HG (35-48); ABG PH 7.413 (7.35-7.45); ABG PO2 83.6 MM HG (80-95); ABG TCO2 23.3 MMOL/L (23-27); Glucose Heart Surgery 132 MG/DL (74-106); Hematocrit Heart Surgery 32.2 PERCENT (42-52); Hemoglobin Heart Surgery 10.4 G/DL (14.0-18.0); Potassium Heart/CVR 3.8 MMOL/L (3.5-5.1)
[2021-09-12 04:33] LABS: Hematocrit 31.2 VOL% (42.0-52.0); Hemoglobin 10.4 GM/DL (14.0-18.0); Immature Granulocytes % 0.7 %; Immature Granulocytes Absolute 0.04 #; Lymphocytes # 0.4 10*3/uL (1.4-4.0); Lymphocytes % 7.4 % (21.2-54.2); Mean Corpuscular HGB Conc 33.3 GM/DL (32-36); Mean Corpuscular Volume 95.4 FL (87-102); Mean Platelet Volume 10.2 FL (9.6-12.0); Monocytes # 0.4 10*3/uL (0.11-0.8); Monocytes % 7.4 % (1.7-12.7); Neutrophils % 84.5 % (38.7-73.9); Platelet Count 153 T/CUMM (130-400); Red Blood Count 3.27 MC/CUMM (3.8-5.5); Red Cell Distribution Width 13.2 % (9.3-17.3); White Blood Count 5.4 T/CUMM (4-12)
[2021-09-12 04:53] LABS: CKMB % 2.24 %; High Sensitive Troponin I* 1556.4 ng/L (0-78)
[2021-09-12] MEDS: POTASSIUM CHLORIDE RIDER 10 MEQ/100 ML PREMIX IV PRN (04:59)
[2021-09-12 05:10] LABS: Albumin 3.6 G/DL (3.4-5.0); Bilirubin,Direct 0.15 MG/DL (0.0-0.20); Bilirubin,Total 0.6 MG/DL (0.20-1.00); Calcium 8.1 MG/DL (8.5-10.1); Osmolality,Calculated 286.8 MOS/KG (273-304); Potassium 3.8 MMOL/L (3.5-5.1); Total Protein 6.2 G/DL (6.4-8.2)
[2021-09-12 05:10] LABS: High Sensitive Troponin I* 1549.4 ng/L (0-78)
[2021-09-12] MEDS: INSULIN REGULAR DRIP 100 ML IV SCH (05:20)
[2021-09-12 06:03] LABS: ABG Base Excess 1.9 MMOL/L (-2.5-2.5); ABG HCO3 26.1 MMOL/L (20-26); ABG Oxygen Saturation 96.8 % (95-100); ABG PCO2 40.6 MM HG (35-48); ABG PH 7.421 (7.35-7.45); ABG PO2 92.1 MM HG (80-95); ABG TCO2 23.9 MMOL/L (23-27); Glucose Heart Surgery 123 MG/DL (74-106); Hematocrit Heart Surgery 32.2 PERCENT (42-52); Hemoglobin Heart Surgery 10.4 G/DL (14.0-18.0); Potassium Heart/CVR 4.1 MMOL/L (3.5-5.1)
[2021-09-12 06:39] LABS: ABG HCO3 26.1 MMOL/L (20-26); ABG Oxygen Saturation 95.9 % (95-100); ABG PCO2 38.7 MM HG (35-48); ABG PH 7.437 (7.35-7.45); ABG TCO2 23.6 MMOL/L (23-27); Glucose Heart Surgery 122 MG/DL (74-106); Hematocrit Heart Surgery 31.9 PERCENT (42-52); Hemoglobin Heart Surgery 10.3 G/DL (14.0-18.0); Potassium Heart/CVR 4.1 MMOL/L (3.5-5.1)
[2021-09-12 07:59] LABS: ABG Base Excess 1.7 MMOL/L (-2.5-2.5); ABG HCO3 25.9 MMOL/L (20-26); ABG Oxygen Saturation 97.5 % (95-100); ABG PCO2 40.3 MM HG (35-48); ABG PH 7.421 (7.35-7.45); ABG PO2 99.8 MM HG (80-95); ABG TCO2 23.6 MMOL/L (23-27); Glucose Heart Surgery 126 MG/DL (74-106); Hematocrit Heart Surgery 33.3 PERCENT (42-52); Hemoglobin Heart Surgery 10.8 G/DL (14.0-18.0); Potassium Heart/CVR 4.2 MMOL/L (3.5-5.1)
[2021-09-12] MEDS ORDERED: ASPIRIN CHEW 81 MG TABLET PO ONE (09:00)
[2021-09-12] MEDS ORDERED: FUROSEMIDE 40 MG/4 ML VIAL IV ONE (09:29)
[2021-09-12] MEDS: carvediloL 12.5 MG TABLET PO SCH ×2 (09:57→20:18)
[2021-09-12] MEDS: oxyCODONE/ACETAMINOPHEN 5-325 MG TABLET PO PRN (09:57)
[2021-09-12] MEDS: KETOROLAC 30 MG/1 ML VIAL IV SCH ×3 (09:59→20:43)
[2021-09-12] MEDS: LOSARTAN 25 MG TABLET PO SCH ×2 (09:59→21:33)
[2021-09-12] MEDS: amLODIPine 5 MG TABLET PO SCH (10:01)
[2021-09-12] MEDS: VANCOMYCIN INJ 1,000 MG in SODIUM CHLORIDE 0.9% 250 ML IV SCH ×2 (10:02→23:09)
[2021-09-12] MEDS: CHLORHEXIDINE 0.12% ORAL RINSE 60 ML BOTTLE SWISH/SPIT SCH ×2 (10:02→20:18)
[2021-09-12] MEDS ORDERED: ACETAMINOPHEN 325 MG TABLET PO PRN (10:11)
[2021-09-12] MEDS ORDERED: POTASSIUM CHLORIDE 20 MEQ TABLET PO PRN (10:11)
[2021-09-12] MEDS ORDERED: MAGNESIUM SULF RIDER 4 GM/100 ML PREMIX IV PRN (10:11)
[2021-09-12] MEDS ORDERED: SODIUM CHLOR 0.45% KCL 20 MEQ 20 MEQ/1,000 ML BAG IV SCH (10:11)
[2021-09-12] MEDS ORDERED: MAGNESIUM HYDROXIDE SUSP 30 ML UDCUP PO PRN (10:11)
[2021-09-12] MEDS ORDERED: DEXTROSE 10% 250 ML BAG IV PRN (10:11)
[2021-09-12] MEDS ORDERED: ALUMINUM/MAGNES/SIMETH MAX STR 30 ML UDCUP PO PRN (10:11)
[2021-09-12] MEDS ORDERED: DEXTROSE 50% 25 GM/50 ML VIAL IV PRN (10:11)
[2021-09-12] MEDS ORDERED: ZALEPLON 5 MG CAPSULE PO PRN (10:11)
[2021-09-12] MEDS ORDERED: MAGNESIUM SULF RIDER 2 GM/50 ML PREMIX IV PRN (10:11)
[2021-09-12] MEDS ORDERED: GLUCAGON 1 MG VIAL IM PRN ×2 (10:11)
[2021-09-12 11:05] LABS: ABG Base Excess 2.1 MMOL/L (-2.5-2.5); ABG HCO3 26.2 MMOL/L (20-26); ABG Oxygen Saturation 92.9 % (95-100); ABG PCO2 40.2 MM HG (35-48); ABG PH 7.428 (7.35-7.45); ABG TCO2 23.9 MMOL/L (23-27); Glucose Heart Surgery 217 MG/DL (74-106); Hematocrit Heart Surgery 33.3 PERCENT (42-52); Hemoglobin Heart Surgery 10.8 G/DL (14.0-18.0); Potassium Heart/CVR 3.9 MMOL/L (3.5-5.1)
[2021-09-12 11:44] LABS: CKMB % 1.75 %; High Sensitive Troponin I* 1365.7 ng/L (0-78)
[2021-09-12] MEDS ORDERED: INSULIN REGULAR 100 UNIT/ML SUBCUT SCH (12:00)
[2021-09-12] MEDS ORDERED: HEPARIN/NACL 0.9% 2 UNITS/ML 1,000 UNIT/500 ML BAG IV ONE (13:11)
[2021-09-12] MEDS: ONDANSETRON 4 MG/2 ML VIAL IV PRN (13:26)
[2021-09-12] MEDS ORDERED: METOCLOPRAMIDE 10 MG/2 ML VIAL IV ONE (14:30)
[2021-09-12] MEDS ORDERED: SCOPOLAMINE 1.5 MG PATCH TRANSDERM ONE (14:30)
[2021-09-12] MEDS ORDERED: POTASSIUM CHLORIDE RIDER 20 MEQ/100 ML PREMIX IV PRN (15:49)
[2021-09-12] MEDS: INSULIN REGULAR 100 UNIT/ML SUBCUT SCH ×3 (16:15→23:13)
[2021-09-13] MEDS: KETOROLAC 30 MG/1 ML VIAL IV SCH (04:08)
[2021-09-13 04:25] LABS: Hematocrit 28.2 VOL% (42.0-52.0); Hemoglobin 9.2 GM/DL (14.0-18.0); Immature Granulocytes % 0.9 %; Immature Granulocytes Absolute 0.07 #; Lymphocytes # 0.4 10*3/uL (1.4-4.0); Lymphocytes % 5.1 % (21.2-54.2); Mean Corpuscular HGB Conc 32.6 GM/DL (32-36); Mean Corpuscular Volume 99.3 FL (87-102); Mean Platelet Volume 10.6 FL (9.6-12.0); Monocytes # 1.2 10*3/uL (0.11-0.8); Monocytes % 14.9 % (1.7-12.7); Neutrophils % 79.1 % (38.7-73.9); Platelet Count 145 T/CUMM (130-400); Red Blood Count 2.84 MC/CUMM (3.8-5.5); Red Cell Distribution Width 13.4 % (9.3-17.3)
[2021-09-13 04:42] LABS: Albumin 3.2 G/DL (3.4-5.0); Bilirubin,Direct 0.14 MG/DL (0.0-0.20); Bilirubin,Total 0.5 MG/DL (0.20-1.00); Calcium 7.8 MG/DL (8.5-10.1); Osmolality,Calculated 289.5 MOS/KG (273-304); Potassium 4.4 MMOL/L (3.5-5.1); Total Protein 5.9 G/DL (6.4-8.2)
[2021-09-13 04:51] LABS: Alanine Aminotransferase 96 U/L (16-61); Albumin 3.1 G/DL (3.4-5.0); Alkaline Phosphatase 43 U/L (45-117); Aspartate Amino Transferase 43 U/L (0-37); Bilirubin,Indirect 0.4 MG/DL (0.0-1.0); Total Protein 5.9 G/DL (6.4-8.2)
[2021-09-13] MEDS: INSULIN REGULAR 100 UNIT/ML SUBCUT SCH ×5 (04:56→21:15)
[2021-09-13] MEDS ORDERED: ALBUMIN 5% 12.5 GM/250 ML VIAL IV ONE (05:03)
[2021-09-13] MEDS ORDERED: FUROSEMIDE 40 MG/4 ML VIAL IV ONE (06:00)
[2021-09-13] MEDS: amLODIPine 5 MG TABLET PO SCH (08:29)
[2021-09-13] MEDS: DOCUSATE SODIUM 100 MG CAPSULE PO SCH (08:30)
[2021-09-13] MEDS: PANTOPRAZOLE 40 MG TABLET PO SCH (08:30)
[2021-09-13] MEDS: FERROUS SULFATE 325 MG TABLET PO SCH (08:30)
[2021-09-13] MEDS: CHLORHEXIDINE 0.12% ORAL RINSE 60 ML BOTTLE SWISH/SPIT SCH ×2 (08:32→21:19)
[2021-09-13] MEDS: ASPIRIN EC 81 MG TABLET PO SCH (10:17)
[2021-09-13] MEDS: glyBURIDE 5 MG TABLET PO SCH (10:17)
[2021-09-13] MEDS: VANCOMYCIN INJ 1,000 MG in SODIUM CHLORIDE 0.9% 250 ML IV SCH (10:19)
[2021-09-13 11:56] LABS: Osmolality,Calculated 293.5 MOS/KG (273-304); Potassium 4.4 MMOL/L (3.5-5.1)
[2021-09-14] MEDS: INSULIN REGULAR 100 UNIT/ML SUBCUT SCH ×6 (02:55→20:46)
[2021-09-14 05:13] LABS: Hematocrit 29.1 VOL% (42.0-52.0); Hemoglobin 9.5 GM/DL (14.0-18.0); Immature Granulocytes % 0.8 %; Immature Granulocytes Absolute 0.06 #; Lymphocytes # 0.7 10*3/uL (1.4-4.0); Lymphocytes % 9.7 % (21.2-54.2); Mean Corpuscular HGB Conc 32.6 GM/DL (32-36); Mean Platelet Volume 10.2 FL (9.6-12.0); Monocytes % 13.8 % (1.7-12.7); Neutrophils % 75.7 % (38.7-73.9); Platelet Count 129 T/CUMM (130-400); Red Blood Count 2.94 MC/CUMM (3.8-5.5); Red Cell Distribution Width 13.5 % (9.3-17.3); White Blood Count 7.5 T/CUMM (4-12)
[2021-09-14 05:35] LABS: Bilirubin,Direct 0.16 MG/DL (0.0-0.20); Bilirubin,Total 0.5 MG/DL (0.20-1.00); Osmolality,Calculated 294.1 MOS/KG (273-304); Potassium 4.4 MMOL/L (3.5-5.1); Total Protein 6.1 G/DL (6.4-8.2)
[2021-09-14 05:43] LABS: Alanine Aminotransferase 79 U/L (16-61); Albumin 3.1 G/DL (3.4-5.0); Alkaline Phosphatase 43 U/L (45-117); Aspartate Amino Transferase 28 U/L (0-37); Bilirubin,Indirect 0.4 MG/DL (0.0-1.0); Total Protein 6.1 G/DL (6.4-8.2)
[2021-09-14] MEDS: POLYETHYLENE GLYCOL POWDER 17 GM PACK PO SCH (08:59)
[2021-09-14] MEDS: FERROUS SULFATE 325 MG TABLET PO SCH (09:00)
[2021-09-14] MEDS: ASPIRIN EC 81 MG TABLET PO SCH (09:00)
[2021-09-14] MEDS: amLODIPine 5 MG TABLET PO SCH (09:00)
[2021-09-14] MEDS: PANTOPRAZOLE 40 MG TABLET PO SCH (09:00)
[2021-09-14] MEDS: glyBURIDE 5 MG TABLET PO SCH (09:01)
[2021-09-14] MEDS: DOCUSATE SODIUM 100 MG CAPSULE PO SCH (09:01)
[2021-09-14] MEDS: CHLORHEXIDINE 0.12% ORAL RINSE 60 ML BOTTLE SWISH/SPIT SCH ×2 (09:44→20:47)
[2021-09-14] MEDS: guaiFENesin/DM ER 600-30 MG TABLET PO PRN (20:46)
[2021-09-15] MEDS: INSULIN REGULAR 100 UNIT/ML SUBCUT SCH ×7 (00:20→23:53)
[2021-09-15 04:53] LABS: Basophils % 0.2 % (0.0-0.8); Eosinophils % 0.2 % (0.00-10.9); Hematocrit 31.1 VOL% (42.0-52.0); Immature Granulocytes % 0.6 %; Immature Granulocytes Absolute 0.03 #; Lymphocytes # 1.2 10*3/uL (1.4-4.0); Mean Corpuscular HGB Conc 32.2 GM/DL (32-36); Mean Corpuscular Volume 99.4 FL (87-102); Mean Platelet Volume 10.3 FL (9.6-12.0); Monocytes # 0.6 10*3/uL (0.11-0.8); Monocytes % 13.2 % (1.7-12.7); Neutrophils % 61.8 % (38.7-73.9); Platelet Count 137 T/CUMM (130-400); Red Blood Count 3.13 MC/CUMM (3.8-5.5); Red Cell Distribution Width 13.4 % (9.3-17.3); White Blood Count 4.8 T/CUMM (4-12)
[2021-09-15 05:21] LABS: Albumin 3.1 G/DL (3.4-5.0); Bilirubin,Total 0.7 MG/DL (0.20-1.00); Calcium 8.5 MG/DL (8.5-10.1); Potassium 4.2 MMOL/L (3.5-5.1); Total Protein 6.2 G/DL (6.4-8.2)
[2021-09-15] MEDS ORDERED: LACTULOSE 20 GM/30 ML UDCUP PO PRN (07:11)
[2021-09-15] MEDS ORDERED: LACTULOSE 20 GM/30 ML UDCUP PO ONE (09:00)
[2021-09-15] MEDS: CHLORHEXIDINE 0.12% ORAL RINSE 60 ML BOTTLE SWISH/SPIT SCH ×2 (09:49→20:58)
[2021-09-15] MEDS: ASPIRIN EC 81 MG TABLET PO SCH (09:49)
[2021-09-15] MEDS: glyBURIDE 5 MG TABLET PO SCH (09:49)
[2021-09-15] MEDS: amLODIPine 5 MG TABLET PO SCH (09:49)
[2021-09-15] MEDS: POLYETHYLENE GLYCOL POWDER 17 GM PACK PO SCH (09:49)
[2021-09-15] MEDS: PANTOPRAZOLE 40 MG TABLET PO SCH (09:49)
[2021-09-15] MEDS: DOCUSATE SODIUM 100 MG CAPSULE PO SCH (09:49)
[2021-09-15] MEDS: FERROUS SULFATE 325 MG TABLET PO SCH (09:49)
[2021-09-15] MEDS: ONDANSETRON 4 MG/2 ML VIAL IV PRN (11:42)
[2021-09-16] MEDS: INSULIN REGULAR 100 UNIT/ML SUBCUT SCH ×5 (03:59→21:08)
[2021-09-16 05:47] LABS: Basophils % 0.2 % (0.0-0.8); Eosinophils # 0.1 10*3/uL (0.0-0.87); Eosinophils % 1.1 % (0.00-10.9); Hematocrit 30.9 VOL% (42.0-52.0); Hemoglobin 10.1 GM/DL (14.0-18.0); Immature Granulocytes % 0.7 %; Immature Granulocytes Absolute 0.03 #; Lymphocytes # 1.1 10*3/uL (1.4-4.0); Lymphocytes % 24.8 % (21.2-54.2); Mean Corpuscular HGB Conc 32.7 GM/DL (32-36); Mean Corpuscular Volume 98.1 FL (87-102); Mean Platelet Volume 10.5 FL (9.6-12.0); Monocytes # 0.6 10*3/uL (0.11-0.8); Monocytes % 12.9 % (1.7-12.7); Neutrophils % 60.3 % (38.7-73.9); Platelet Count 147 T/CUMM (130-400); Red Blood Count 3.15 MC/CUMM (3.8-5.5); Red Cell Distribution Width 13.2 % (9.3-17.3); White Blood Count 4.6 T/CUMM (4-12)
[2021-09-16 06:08] LABS: Alanine Aminotransferase 95 U/L (16-61); Albumin 3.1 G/DL (3.4-5.0); Alkaline Phosphatase 51 U/L (45-117); Aspartate Amino Transferase 26 U/L (0-37); Bilirubin,Indirect 0.6 MG/DL (0.0-1.0); Blood Urea Nitrogen 20 MG/DL (7-18); Calcium 8.4 MG/DL (8.5-10.1); Carbon Dioxide 29 MMOL/L (21-32); Chloride 107 MMOL/L (98-107); Glucose 124 MG/DL (74-106); Potassium 4.1 MMOL/L (3.5-5.1); Sodium 143 MMOL/L (136-145); Total Protein 6.3 G/DL (6.4-8.2)
[2021-09-16] MEDS: amLODIPine 5 MG TABLET PO SCH (09:53)
[2021-09-16] MEDS: ASPIRIN EC 81 MG TABLET PO SCH (09:53)
[2021-09-16] MEDS: PANTOPRAZOLE 40 MG TABLET PO SCH (09:53)
[2021-09-16] MEDS: DOCUSATE SODIUM 100 MG CAPSULE PO SCH (09:54)
[2021-09-16] MEDS: POLYETHYLENE GLYCOL POWDER 17 GM PACK PO SCH (09:54)
[2021-09-16] MEDS: FERROUS SULFATE 325 MG TABLET PO SCH (09:54)
[2021-09-16] MEDS: CHLORHEXIDINE 0.12% ORAL RINSE 60 ML BOTTLE SWISH/SPIT SCH ×2 (09:55→21:09)
[2021-09-16] MEDS: glyBURIDE 5 MG TABLET PO SCH (09:57)
[2021-09-16] MEDS: guaiFENesin/DM ER 600-30 MG TABLET PO PRN (21:09)
[2021-09-17] MEDS: INSULIN REGULAR 100 UNIT/ML SUBCUT SCH ×6 (00:23→21:16)
[2021-09-17 05:22] LABS: Basophils % 0.2 % (0.0-0.8); Eosinophils # 0.1 10*3/uL (0.0-0.87); Hematocrit 33.3 VOL% (42.0-52.0); Hemoglobin 10.9 GM/DL (14.0-18.0); Immature Granulocytes % 0.6 %; Immature Granulocytes Absolute 0.03 #; Lymphocytes # 1.4 10*3/uL (1.4-4.0); Lymphocytes % 28.3 % (21.2-54.2); Mean Corpuscular HGB Conc 32.7 GM/DL (32-36); Mean Corpuscular Volume 97.1 FL (87-102); Mean Platelet Volume 10.3 FL (9.6-12.0); Monocytes # 0.6 10*3/uL (0.11-0.8); Neutrophils % 56.9 % (38.7-73.9); Platelet Count 163 T/CUMM (130-400); Red Blood Count 3.43 MC/CUMM (3.8-5.5)
[2021-09-17 05:47] LABS: Alanine Aminotransferase 83 U/L (16-61); Albumin 3.2 G/DL (3.4-5.0); Alkaline Phosphatase 56 U/L (45-117); Aspartate Amino Transferase 22 U/L (0-37); Bilirubin,Indirect 0.7 MG/DL (0.0-1.0); Blood Urea Nitrogen 13 MG/DL (7-18); Calcium 8.6 MG/DL (8.5-10.1); Carbon Dioxide 26 MMOL/L (21-32); Chloride 106 MMOL/L (98-107); Glucose 117 MG/DL (74-106); Osmolality,Calculated 279.4 MOS/KG (273-304); Potassium 4.1 MMOL/L (3.5-5.1); Sodium 140 MMOL/L (136-145); Total Protein 6.5 G/DL (6.4-8.2)
[2021-09-17] MEDS: ONDANSETRON 4 MG/2 ML VIAL IV PRN (07:30)
[2021-09-17] MEDS ORDERED: METOCLOPRAMIDE 10 MG/2 ML VIAL IV PRN (08:11)
[2021-09-17] MEDS ORDERED: SCOPOLAMINE 1.5 MG PATCH TRANSDERM SCH (09:00)
[2021-09-17] MEDS: amLODIPine 5 MG TABLET PO SCH (09:58)
[2021-09-17] MEDS: DOCUSATE SODIUM 100 MG CAPSULE PO SCH (09:58)
[2021-09-17] MEDS: ATORVASTATIN 40 MG TABLET PO SCH (09:58)
[2021-09-17] MEDS: glyBURIDE 5 MG TABLET PO SCH (09:58)
[2021-09-17] MEDS: ASPIRIN EC 81 MG TABLET PO SCH (09:59)
[2021-09-17] MEDS: PANTOPRAZOLE 40 MG TABLET PO SCH (09:59)
[2021-09-17] MEDS: oxyCODONE/ACETAMINOPHEN 5-325 MG TABLET PO PRN (09:59)
[2021-09-17] MEDS: POLYETHYLENE GLYCOL POWDER 17 GM PACK PO SCH (10:07)
[2021-09-17] MEDS: CHLORHEXIDINE 0.12% ORAL RINSE 60 ML BOTTLE SWISH/SPIT SCH ×2 (10:08→21:15)
[2021-09-17] MEDS ORDERED: AMIODARONE INJ 150 MG in DEXTROSE 5% 100 ML IV ONE (15:42)
[2021-09-17] MEDS ORDERED: AMIODARONE INJ 450 MG in DEXTROSE 5% 241 ML IV SCH (16:00)
[2021-09-17] MEDS: APIXABAN 5 MG TABLET PO SCH ×2 (16:24→21:15)
[2021-09-17] MEDS ORDERED: carvediloL 3.125 MG TABLET PO SCH (21:00)
[2021-09-17] MEDS: AMIODARONE INJ 450 MG in DEXTROSE 5% 241 ML IV SCH (23:10)
[2021-09-18] MEDS: INSULIN REGULAR 100 UNIT/ML SUBCUT SCH ×6 (00:20→20:30)
[2021-09-18 05:13] LABS: Eosinophils # 0.1 10*3/uL (0.0-0.87); Eosinophils % 1.9 % (0.00-10.9); Hematocrit 30.5 VOL% (42.0-52.0); Hemoglobin 9.9 GM/DL (14.0-18.0); Immature Granulocytes % 0.9 %; Immature Granulocytes Absolute 0.05 #; Lymphocytes # 1.2 10*3/uL (1.4-4.0); Lymphocytes % 23.4 % (21.2-54.2); Mean Corpuscular HGB Conc 32.5 GM/DL (32-36); Mean Corpuscular Volume 96.2 FL (87-102); Mean Platelet Volume 10.4 FL (9.6-12.0); Monocytes # 0.7 10*3/uL (0.11-0.8); Monocytes % 12.2 % (1.7-12.7); Neutrophils % 61.6 % (38.7-73.9); Platelet Count 153 T/CUMM (130-400); Red Blood Count 3.17 MC/CUMM (3.8-5.5); Red Cell Distribution Width 13.2 % (9.3-17.3); White Blood Count 5.3 T/CUMM (4-12)
[2021-09-18 05:41] LABS: Calcium 8.5 MG/DL (8.5-10.1); Osmolality,Calculated 279.5 MOS/KG (273-304); Potassium 3.7 MMOL/L (3.5-5.1)
[2021-09-18] MEDS: ASPIRIN EC 81 MG TABLET PO SCH (09:13)
[2021-09-18] MEDS: APIXABAN 5 MG TABLET PO SCH ×2 (09:14→20:30)
[2021-09-18] MEDS: CHLORHEXIDINE 0.12% ORAL RINSE 60 ML BOTTLE SWISH/SPIT SCH ×2 (09:14→20:30)
[2021-09-18] MEDS: PANTOPRAZOLE 40 MG TABLET PO SCH (09:14)
[2021-09-18] MEDS: DOCUSATE SODIUM 100 MG CAPSULE PO SCH (09:14)
[2021-09-18] MEDS: ATORVASTATIN 40 MG TABLET PO SCH (09:14)
[2021-09-18] MEDS: amLODIPine 5 MG TABLET PO SCH (09:14)
[2021-09-18] MEDS: ASCORBIC ACID 500 MG TABLET PO SCH ×2 (09:14→20:30)
[2021-09-18] MEDS: POLYETHYLENE GLYCOL POWDER 17 GM PACK PO SCH (09:14)
[2021-09-18] MEDS: glyBURIDE 5 MG TABLET PO SCH (09:24)
[2021-09-18] MEDS: AMIODARONE 200 MG TABLET PO SCH ×2 (09:24→20:30)
[2021-09-18] MEDS: AMIODARONE INJ 450 MG in DEXTROSE 5% 241 ML IV SCH (13:31)
[2021-09-19] MEDS: INSULIN REGULAR 100 UNIT/ML SUBCUT SCH ×4 (00:18→11:51)
[2021-09-19] MEDS ORDERED: amLODIPine 10 MG TABLET PO SCH (09:00)
[2021-09-19] MEDS: PANTOPRAZOLE 40 MG TABLET PO SCH (09:36)
[2021-09-19] MEDS: DOCUSATE SODIUM 100 MG CAPSULE PO SCH (09:36)
[2021-09-19] MEDS: ATORVASTATIN 40 MG TABLET PO SCH (09:36)
[2021-09-19] MEDS: POLYETHYLENE GLYCOL POWDER 17 GM PACK PO SCH (09:36)
[2021-09-19] MEDS: glyBURIDE 5 MG TABLET PO SCH (09:37)
[2021-09-19] MEDS: ASCORBIC ACID 500 MG TABLET PO SCH (09:37)
[2021-09-19] MEDS: ASPIRIN EC 81 MG TABLET PO SCH (09:37)
[2021-09-19] MEDS: CHLORHEXIDINE 0.12% ORAL RINSE 60 ML BOTTLE SWISH/SPIT SCH (09:37)
[2021-09-19] MEDS: AMIODARONE 200 MG TABLET PO SCH (09:37)
[2021-09-19] MEDS: APIXABAN 5 MG TABLET PO SCH (09:37)
[2021-09-19 12:12] VITALS: BP 161/77
== END 2021-09-19 12:39 | disposition home or self-care (01) | DRG 234 ==
LOC: N.CL 06:01 → N.TELEN 08:37 → N.CVR 09-11 07:34 → N.ICU 09-12 15:06 → N.TELES 09-13 14:48
PROVIDERS: ADMIT Internal Medicine Cardiovascular Disease; ATTEND Internal Medicine Cardiovascular Disease